=== PATIENT | female | born 1990 | race Caucasian/White ===

== ENCOUNTER 2021-10-18 22:06 | Emergency (ER) | payer SELFPAY ==
[~2021-10-18] VITALS: Ht 152.4 cm; Wt 113.6 kg
[2021-10-18 22:13] VITALS: TEMP 97.9
[2021-10-18 23:40] VITALS: BP 120/80; PULSE 80
== END 2021-10-18 23:45 | disposition home or self-care (01) ==
LOC: COL.ER 22:06
DX: M79.642 Pain in left hand (principal); E66.9 Obesity, unspecified; Z68.42 Body mass index [BMI] 45.0-49.9, adult